=== PATIENT | female | born 2000 | race Caucasian/White ===

== ENCOUNTER 2021-04-08 14:20 | Day surgery (SDC) | payer OTHER ==
[~2021-04-08] VITALS: Ht 162.6 cm; Wt 81.6 kg
[2021-04-08] MEDS ORDERED: PRENATAL FORMU1 EACH PO (16:21)
[2021-04-08 16:48] LABS: HCT 35.4 % (37.0-47.0); HGB 10.9 g/dl (12.5-16.0); MCH 22.5 pg (25.0-31.0); MCHC 30.8 g/dL (32.0-36.0); MPV 10.6 fL (6.0-9.5); RBC 4.85 M/uL (4.20-5.40); RDW 15.5 % (11.5-14.0); WBC 11.5 K/uL (4.0-10.5)
== END 2021-04-08 22:55 | disposition home or self-care (01) ==
LOC: FAS 14:20 → FOB 20:42 → FAS 22:55
PROVIDERS: Specialist
DX: O02.1 Missed abortion (principal); E66.9 Obesity, unspecified; Z20.822 Contact with and (suspected) exposure to COVID-19; Z79.899 Other long term (current) drug therapy
CPT/HCPCS: 36415; 86850; 86900; 86901; J0690; J1100; J1885; J2405; J2704; J3010; J7120; U0002